=== PATIENT | male | born 1970 | race Two or more races ===

== ENCOUNTER 2025-05-10 09:59 | Outpatient (RCR) | payer MEDICAID, SELFPAY ==
--- NOTE | 2025-05-10 10:21 | PTNOTE_ITS ---
PT OP Initial Eval Patient Information Outpatient Physical Therapy Treatment Date: 05/10/25 Visit Reasons: left knee pain Medical Diagnosis: M25.562 Treatment Dx #1: L knee pain Start of Care: 05/10/25 Date of Onset: 2 yrs ago Smoking Status Smoking Status: Never smoker Initial Assessment Subjective: Pt is 54 yr old male who reports L knee pain x2 yrs. Increased pain with standing up from a chair, walking >3 minutes, and stairs. PMH: OA Imaging: with provider Pt goal: less L knee pain Objective: L knee AROM: ? Flexion: 112 deg ? Extension: -10 deg ? Huma's: negative/limited Anterior drawer: negative ? SLR: 55 deg with slight extensor lag ? Strength: L quads 4-/5 limited by patella compression pain, hamstrings 4-/5 ? Antalgic gait pattern with decreased stance time on L Crepitus: positive Observation: varus orientation Assessment: Pt presents with varus knee orientation and decreased knee strength and ROM limited by pain consistent with OA. Pt is not likely going to benefit from sk illed therapy to meet goals but we will try a few trial visits. If pt isn't progressing with goals PT recommends further diagnostic imaging such as MRI and orthopedic evaluation. Short Term and [employer] Goals 1. Independent with HEP ? 2. Improved knee flexion ROM to 120 deg ? 3. Improved quad and hamstring strength to 4/5 ? 4. Improved ambulatory tolerance to community distances with symmetrical ? gait pattern. Treatment Plan 1. Manual therapy ? 2. Therex ? 3. Modalities as indicated, moist heat, ice, TENS Frequency and Duration: 1-2x a week for 3-4 trial visits. If progressing continue up to 12 visits Certification Dates: 05/10/25 to 08/08/24 Procedure Charges OP PT Eval Mod Complex 30 minutes: Yes
== END 2025-05-23 23:59 | disposition home or self-care (01) ==
LOC: CPTX 09:59
PROVIDERS: PCP Nurse Practitioner; Referring Provider Nurse Practitioner; Visit Provider Nurse Practitioner
DX: M25.562 Pain in left knee (principal)
CPT/HCPCS: 97162

== ENCOUNTER → 2025-05-27 | Outpatient (CLI) | payer MEDICAID, SELFPAY ==
--- NOTE | 2025-05-27 09:30 | XR_ITS ---
Exam: MRI knee without contrast, left Date and time of exam: 2024, 1107 hours INDICATIONS: Anterior knee pain weakness stiffness swelling 2 years Technique: Multiple axial, coronal, and sagittal sections on the knee have been obtained. T2-Weighted sagittal, fat-suppressed images, TR 3,500, TE 62, T2 weighted coronal fat-saturated images, TR 3,500, TE 62 Proton density sagittal sections, TR 1800, TE 31. T-1 weighted coronal images, TR 524, TE 13.0 Findings: Medial meniscus anterior horn truncation inner margin. Medial meniscus, body replaced by isointense signal, extruded from the joint space. Posterior horn medial meniscus replaced by isointense signal. Lateral meniscus anterior horn is intact Lateral meniscus, body is intact Posterior horn lateral meniscus is intact Anterior cruciate ligament high-grade sprain Posterior cruciate ligament appears intact. Knee effusion is moderate with synovial debris. Quadriceps and patellar tendons appear intact. There is no evidence of tendinosis. Inflammatory change or fracture of Hoffa's fat pad is not seen. Medial patellar facet demonstrates severe thinning. Lateral patellar facet cartilage demonstrates severe thinning. Trochlear cartilage demonstrates severe thinning. Marrow signal increased about the medial joint space. Medial collateral ligament appears intact. Meniscocapsular separation body of the medial meniscus Illiotibial band and fibular collateral ligament are intact. Biceps femoris tendons appear intact. Medial femoral condylar articular cartilage demonstrates severe thinning. Lateral femoral condylar articular cartilage demonstrates moderate thinning. Tibial plateau cartilage demonstrates severe medial thinning. Impression: Extensive medial meniscus tears High-grade sprain anterior cruciate ligament Severe thinning cartilage medial patellofemoral joints Meniscocapsular separation body of the medial meniscus
== END | disposition home or self-care (01) ==
LOC: SMRI 09:34
PROVIDERS: Referring Provider Nurse Practitioner; Visit Provider Nurse Practitioner
DX: S83.242A Other tear of medial meniscus, current injury, left knee, initial encounter (principal); S83.512A Sprain of anterior cruciate ligament of left knee, initial encounter; S83.195A Other dislocation of left knee, initial encounter; X58.XXXA Exposure to other specified factors, initial encounter
CPT/HCPCS: 73721

== ENCOUNTER 2025-06-09 13:30 | Outpatient (RCR) | payer MEDICAID, SELFPAY ==
--- NOTE | 2025-05-25 17:57 | PT.ODAYNRPT ---
PT Outpatient Daily Note OP Daily Note Outpatient Physical Therapy Treatment Date: 05/25/25 Visit Reasons: LEFT KNEE PAIN Subjective: Same as time of evaluation Objective: See F/S for therex Assessment: Increased L knee pain with loading the knee consistent with OA Plan: Continue per POC Length of Time (minutes) of Treatment: 30 Minutes Procedure Charges Therapeutic Exercise 30 minutes: Yes
--- NOTE | 2025-05-27 13:41 | PT.ODAYNRPT ---
PT Outpatient Daily Note OP Daily Note Outpatient Physical Therapy Treatment Date: 05/27/25 Visit Reasons: LEFT KNEE PAIN Subjective: Pt reports knee felt better after last PT session. Objective: Please see flow sheet for ther ex list. Assessment: Added interventions completed with good tolerance. Plan: Continue with poC. Length of Time (minutes) of Treatment: 30 Minutes Procedure Charges Therapeutic Exercise 30 minutes: Yes
--- NOTE | 2025-05-31 14:26 | PT.ODAYNRPT ---
PT Outpatient Daily Note OP Daily Note Outpatient Physical Therapy Treatment Date: 05/31/25 Visit Reasons: LEFT KNEE PAIN Subjective: Pt reports L knee is hurting more lately feels like it is due to the cold weather. Pt does notice that his movement is improving. Objective: Please see flow sheet for ther ex list. Assessment: Added TG squat exercise, pt tolerated well and demonstrates good knee mechanics. Plan: Continue with poC. Length of Time (minutes) of Treatment: 30 Minutes Procedure Charges Therapeutic Exercise 30 minutes: Yes
--- NOTE | 2025-06-04 14:36 | PT.ODAYNRPT ---
PT Outpatient Daily Note OP Daily Note Outpatient Physical Therapy Treatment Date: 06/04/25 Visit Reasons: LEFT KNEE PAIN Subjective: pt c/o knee feeling stiff and achy, due to cold weather. Objective: Please see flow sheet for ther ex list. Assessment: Pt demonstrates poor knee flexion and poor heel strike during gait. Worked on knee flexion and heel strike during GT, pt required multiple attempts and Max cues to achieve desired motion. Plan: Continue with pOC. Length of Time (minutes) of Treatment: 30 Minutes Procedure Charges Therapeutic Exercise 30 minutes: Yes
--- NOTE | 2025-06-09 14:26 | PT.ODAYNRPT ---
PT Outpatient Daily Note OP Daily Note Outpatient Physical Therapy Treatment Date: 06/09/25 Visit Reasons: LEFT KNEE PAIN Subjective: Pt reports L knee has been really stiff and painful lately. As per pt he is really considering steroid injection for L knee. Objective: Pleae see flow sheet for ther ex list. Assessment: Worked on knee flexion during swing phase, required multiple attempts to replicate semi-normal gait. Plan: Continue with poC. Length of Time (minutes) of Treatment: 30 Minutes Procedure Charges Therapeutic Exercise 30 minutes: Yes
== END 2025-06-23 23:59 | disposition home or self-care (01) ==
LOC: CPTX 13:30
PROVIDERS: PCP Nurse Practitioner; Referring Provider Nurse Practitioner; Visit Provider Nurse Practitioner
DX: M25.562 Pain in left knee (principal)
CPT/HCPCS: 97110